=== PATIENT | male | born 1995 | race American Indian/Alaskan Native ===

== ENCOUNTER 2016-11-01 13:59 | Emergency (ER) | payer MEDICAID ==
--- NOTE | 2016-11-01 14:22 | EDPHY ---
H & P Stated Complaint: L rib pain vs skateboarding Monday Time Seen by Provider: 11/01/16 14:20 - Personal History Current Tetanus Diphtheria and Acellular Pertussis (TDAP): Yes - Medical/Surgical History Hx Asthma: No Hx Chronic Respiratory Disease: No Hx Diabetes: No Hx Cardiac Disease: No Hx Renal Disease: No Hx Cirrhosis: No Hx Alcoholism: No Hx HIV/AIDS: No Hx Splenectomy or Spleen Trauma: No Other PMH: denies - Social History Smoking Status: Current every day smoker Constitutional: Initial Vital Signs Temperature (C) 36.9 C 11/01/16 14:02 Heart Rate 85 11/01/16 14:02 Respiratory Rate 18 11/01/16 14:02 Blood Pressure 125/70 H 11/01/16 14:02 O2 Sat (%) 98 11/01/16 14:02 O2 Delivery Mode Room Air Allergies/Adverse Reactions: amoxicillin Allergy (Verified 11/01/16 14:01) Home Medications: Medication Instructions Recorded HYDROcodone/APAP 10/325 [[place] 1 - 2 each PO Q4-6PRN PRN #20 tab 11/01/16 10/325] Ibuprofen [Motrin] 800 mg PO Q8 #20 tab 11/01/16 Medical Decision Making ED Course/Re-evaluation: CHIEF COMPLAINT: Left chest pain HISTORY OF PRESENT ILLNESS: This patient is a 21 year old male who presents to the Emergency Department complaining of left-sided chest wall pain secondary to a skateboarding accident on Monday. He tells me that he attempted to do a trick on his skateboard when he landed on his left side with his arm beneath his chest. He describes his pain as localized to the left anterior chest. He describes mild associated dyspnea. He denies arm pain or swelling or any additional injuries. No pertinent medical history. REVIEW OF SYSTEMS: A 10 point review of systems was performed and is negative with the exception of the elements mentioned in the history of present illness. PHYSICAL EXAM: HR 85, BP 125/70, O2 Sat 98%, RR 18. Temp noted General Appearance: Alert, well hydrated, appropriate, and non-toxic appearing. Head: Atraumatic without scalp tenderness or obvious injury Eyes: Pupils equal, round, reactive to light and accommodation, EOMI, no trauma , no injection. Ears: Clear bilaterally, no perforation, normal landmarks Nose: Atraumatic, no rhinorrhea, clear. Throat: There is no erythema or exudates, no lesions, normal tonsils, mucus membranes moist. Neck: Supple, 2+ carotid upstroke, nontender, no lymphadenopathy. Respiratory: No retractions, no distress, no wheezes, and no accessory muscle use. Lungs are clear to auscultation bilaterally. Cardiovascular: Regular rate and rhythm, no murmurs, rubs, or gallops. Bilateral carotid, radial, dorsalis pedis, and posterior tibial pulses intact. Good capillary refill all extremities. Gastrointestinal: Abdomen is soft, nontender, non-distended, no masses, no rebound, no guarding, no peritoneal signs. Musculoskeletal: Normal active ROM of all extremities, atraumatic. Neurological: Alert, appropriate, and interactive. The patient has normal DTRs and non-focal cranial nerves, motor, sensory, and cerebellar exam. Skin: No rashes, good turgor, no nodules on palpation. Past medical history: Denies. Past surgical history: Non-contributory. Family history: Non-contributory. Social history: Smokes tobacco regularly. DIAGNOSTICS/PROCEDURES/CRITICAL CARE TIME: IMAGING: Study: X-ray of the chest Indication: Pain, trauma Results: X-ray of the chest was obtained. The results of the study are: normal. I viewed the images myself on the PACS system. Radiologist interpretation is pending at the time of this report. DIFFERENTIAL DIAGNOSIS: Differential diagnosis for the patient's chest wall pain includes but is not limited to pneumothorax, rib fracture, or rib contusion. MEDICAL DECISION MAKING: This normally healthy 21 year old presents with mild to moderate left-sided anterior chest well pain most likely secondary to a rib injury obtained when fell from his skateboard on Monday. He does report mild dyspnea but complains of no additional injuries or symptoms. His exam is benign. Will proceed with imaging of his chest to rule out lung injury. I discussed imaging results with the patient. He will be discharged home with [place] for pain and instructions to rest and ice his injury until his symptoms subside. He is agreeable to this and will be discharged home in stable condition. - Data Points Medications Given: Discontinued Medications Acetaminophen/Hydrocodone Bitart ([place] 5/325) 2 tab PO EDNOW ONE Stop: 11/01/16 14:50 Last Admin: 11/01/16 15:17 Dose: 2 tab Departure - Departure Disposition: Home, Routine, Self-Care Clinical Impression: Rib injury Condition: Good Instructions: Rib Fracture (ED) Additional Instructions: 1. Rest and ice the site of your injury until your pain resolves. 2. Alternate Tylenol and Ibuprofen every 6 hours as directed, as needed for mild pain. 3. Take [place] as prescribed, as needed for severe pain. 4. Return to the Emergency Department with worsening shortness of breath, severe pain or increased swelling, or other serious concerns. Prescriptions: Ibuprofen [Motrin] 800 mg PO Q8 #20 tab HYDROcodone/APAP 10/325 [[place] 10/325] 1 - 2 each PO Q4-6PRN PRN #20 tab PRN Reason: Pain, Moderate Report Scribed for: Greg Horner Report Scribed by: Radha Noonan Date of Report: 11/01/16 Time of Report: 14:45
[2016-11-01] MEDS ORDERED: HYDROCODONE/APAP 5/325 TAB PO ONE (14:49)
[2016-11-01 15:27] VITALS: BP 128/67; PULSE 88; RESP 16; TEMP 98.2; O2SAT 97
--- NOTE | 2016-11-01 15:41 | DX ---
Left rib series - 3 views Indication: Trauma.. Technique: PA view and 2 oblique views of the left hemithorax. Findings: The lungs are well aerated and clear. No pneumothorax, atelectasis or effusion. Heart size normal. The BB overlies the anterior left sixth rib near the costochondral junction. No underlying [place] rib fracture or bone lesion. Impression: Normal. No rib fracture or pneumothorax.
== END 2016-11-01 15:30 | disposition home or self-care (01) ==
DX: S29.9XXA Unspecified injury of thorax, initial encounter (principal); F17.200 Nicotine dependence, unspecified, uncomplicated; V00.131A Fall from skateboard, initial encounter; Y93.23 Activity, snow (alpine) (downhill) skiing, snowboarding, sledding, tobogganing and snow tubing

== ENCOUNTER 2017-07-07 13:24 | Emergency (ER) | payer MEDICAID ==
--- NOTE | 2017-07-07 14:21 | EDPHY ---
H & P Stated Complaint: R pointer finger/nail injury from skateboard yesterday Time Seen by Provider: 07/07/17 14:20 - Personal History Current Tetanus/Diphtheria Vaccine: Yes Current Tetanus Diphtheria and Acellular Pertussis (TDAP): Yes Tetanus Vaccine Date: 2013 - Medical/Surgical History Hx Asthma: No Hx Chronic Respiratory Disease: No Hx Diabetes: No Hx Cardiac Disease: No Hx Renal Disease: No Hx Cirrhosis: No Hx Alcoholism: No Hx HIV/AIDS: No Hx Splenectomy or Spleen Trauma: No Other PMH: denies - Social History Smoking Status: Current every day smoker Constitutional: Initial Vital Signs Temperature (C) 37.0 C 07/07/17 13:28 Heart Rate 85 07/07/17 13:28 Respiratory Rate 16 07/07/17 13:28 Blood Pressure 103/66 07/07/17 13:28 O2 Sat (%) 95 07/07/17 13:28 O2 Delivery Mode Room Air Allergies/Adverse Reactions: amoxicillin Allergy (Verified 11/01/16 14:01) Penicillins Allergy (Verified 07/07/17 13:28) Home Medications: Medication Instructions Recorded HYDROcodone/APAP 10/325 [[place] 1 - 2 each PO Q4-6PRN PRN #20 tab 11/01/16 10/325] Ibuprofen [Motrin] 800 mg PO Q8 #20 tab 11/01/16 Medical Decision Making - Diagnostics Imaging Results: Imaging Impressions Hand X-Ray 07/07/17 13:35 Impression: Normal. Imaging: I viewed and interpreted images myself ED Course/Re-evaluation: CHIEF COMPLAINT: Right index finger HISTORY OF PRESENT ILLNESS: The patient is a 22 y/o male complaining of a right index finger injury secondary to a fall off his skateboard last night. He has throbbing pain under his index fingernail. He denies weakness, numbness, or other injuries from the fall. He is normally healthy. REVIEW OF SYSTEMS: A 10 point review of systems was performed and is negative with the exception of the elements mentioned in the history of present illness. PHYSICAL EXAM: HR, BP, O2 Sat, RR. Temp noted General Appearance: Alert, well hydrated, appropriate, and non-toxic appearing. Head: Atraumatic without scalp tenderness or obvious injury Eyes: Pupils equal, round, reactive to light and accommodation, EOMI, no trauma , no injection. Throat: mucus membranes moist. Neck: Supple Respiratory: No retractions, no distress, no wheezes, and no accessory muscle use. Cardiovascular: Good capillary refill all extremities. Musculoskeletal: Subungual hematoma to right index finger with abrasion overlying PIP. Normal active ROM of all extremities, atraumatic. Neurological: Alert, appropriate, and interactive. Nonfocal neuro exam. Skin: No rashes, good turgor, no nodules on palpation. Past medical history: Denies Past surgical history: Denies Family history: Noncontributory Social history: Employed at [employer]. Lives in [place]. DIAGNOSTICS/PROCEDURES/CRITICAL CARE TIME: Right finger x-ray: no fracture. Subungual cautery performed successfully by myself. Patient tolerated the procedure well. DIFFERENTIAL DIAGNOSIS: The differential diagnosis for the patient's symptoms included but was not limited to subungual hematoma, finger abrasion, fracture, sprain, contusion. MEDICAL DECISION MAKING: This is a healthy 22 y/o male who presents with a right index finger subungual hematoma and abrasion over his PIP joint after falling off his skateboard last night. He is neurovascularly intact. His subungual hematoma was treated successfully with cautery. He had significant relief following this procedure. His x-ray is negative for fracture. He will be discharged with standard wound care and return precautions. He is comfortable with this plan. Departure - Departure Disposition: Home, Routine, Self-Care Clinical Impression: Subungual hematoma Finger abrasion Qualifiers: Encounter type: initial encounter Qualified Code(s): S60.419A - Abrasion of unspecified finger, initial encounter Condition: Good Instructions: Subungual Hematoma (ED) Additional Instructions: Keep site clean and dry. Cover wounds while at work until completely healed. Follow up with your PCP or return to the ED for any signs of infection. Referrals: [facility],. [Clinic] - As per Instructions Stand Alone Forms: Work Excuse Report Scribed for: Greg Horner Report Scribed by: Lorene Clements Date of Report: 07/07/17 Time of Report: 14:27
[2017-07-07 14:47] VITALS: BP 99/60; PULSE 56; RESP 18; TEMP 98.2; O2SAT 96
== END 2017-07-07 14:50 | disposition home or self-care (01) ==
PROC: 0H9QXZZ Drainage of Finger Nail, External Approach (ICD-10-PCS; principal; 2017-07-07)
DX: S60.121A Contusion of right index finger with damage to nail, initial encounter (principal); S60.410A Abrasion of right index finger, initial encounter; F17.200 Nicotine dependence, unspecified, uncomplicated; V00.131A Fall from skateboard, initial encounter; Y93.51 Activity, roller skating (inline) and skateboarding

== ENCOUNTER 2018-04-01 04:56 | Emergency (ER) | payer MEDICAID ==
[2018-04-01 05:03] VITALS: BP 131/87
--- NOTE | 2018-04-01 05:04 | EDPHY ---
H & P Time Seen by Provider: 04/01/18 05:00 HPI/ROS: HPI CHIEF COMPLAINT: Alcohol Intoxication, left knee contusion, left knee small laceration HISTORY OF PRESENT ILLNESS: 22-year-old male, presents emergency room by EMS for acute alcohol intoxication. Police and EMS make contact with him as he was found highly intoxicated passed out on a balcony. Please had trouble waking him up. EMS arrived to find him alert, oriented, however he had a small laceration left anterior knee. Minimal bleeding. It is unclear exactly what happened or how he got this laceration the patient does not remember. He is intoxicated with alcohol. No other areas of injury on exam. Patient was cooperative with EMS and police. Does admit to a large amount of alcohol this evening. Patient does not remember how he got a small left knee laceration. Patient reports his tetanus shot is up-to-date. Past Medical History: Denies medical history Past Surgical History: Denies surgical history Social History: Large amount of alcohol this evening otherwise denies illicit drugs. Family History: Noncontributory ROS REVIEW OF SYSTEMS: Limited review systems due to patient's mental state of alcohol intoxication Exam Constitutional Intoxicated, triage nursing summary reviewed, vital signs reviewed, Sleepy, smells of alcohol Eyes normal conjunctivae and sclera, horizontal beating nystagmus consistent acute alcohol intoxication, otherwise pupils equal and react to light HENT normal inspection, atraumatic, moist mucus membranes, no epistaxis, neck supple/ no meningismus, no raccoon eyes. Respiratory clear to auscultation bilaterally, normal breath sounds, no respiratory distress, no wheezing. Cardiovascular rate normal, regular rhythm, no murmur, no edema, distal pulses normal. Gastrointestinal soft, non-tender, no rebound, no guarding, normal bowel sounds, no distension, no pulsatile mass. Genitourinary no CVA tenderness. Musculoskeletal no midline vertebral tenderness, full range of motion, no calf swelling, no tenderness of extremities, no meningismus, good pulses, neurovascularly intact. Skin over the anterior left lateral aspect of the knee there is a small less than 1 cm laceration. Otherwise his left lower extremity is neurovascular intact, full range of motion of the left knee with normal flexion extension, no evidence of foreign body seen in the laceration. Neurologic sleepy, intoxicated with alcohol,, alert and oriented x 3, AAOx3, moves all 4 extremities equally, motor intact, sensory intact, CN II-XII intact , , normal vision, normal speech. Psychiatric normal mood/affect. Heme/Lymph/Immune no lymphadenopathy. Differential Diagnosis: Includes but is not limited to in a particular order acute alcohol intoxication, alcohol abuse, dehydration, electrolyte abnormality , nausea vomiting from acute alcohol intoxication, knee contusion, needs sprain , fracture, laceration, soft tissue Medical Decision Making: Plan for this patient x-ray left knee for evaluation of bony abnormality including fracture, and then will copiously irrigating clean his wound out and then repair his laceration. Patient will need time for sobering. Once sober enough he can be disposition to the [facility] as he is on an [facility] hold. Re-evaluation: Laceration Repair Procedure: Verbal Consent was obtained, Under sterile conditions, The patient had lidocaine with epinephrine used approximately 3ccs to local anesthetize the Left Knee <2CM Laceration. The wound was copiously irrigated with sterile fluid, the wound was explored for foreign bodies there were none visualized, the wound was explored with a sterile glove to the base. There are no deep structures involved, including no arterial injury. TWO 4.O PROLENE interrupted Sutures were placed in this patient's laceration. He had good close approximation of the wound edges. He Tolerated this well. 0512: Patient ambulated well throughout the emergency room then difficulty. Steady gait. Clinically sober to go to the [facility]. Laceration repair. It was copiously irrigated and explored no foreign body seen. X-ray reviewed. Patient understands have sutures removed in 10-12 days this is placed on his discharge paperwork. Return precautions discussed some he understands watch for infection. Return if any worsening symptoms questions or concerns including preceding pain , swelling, redness, drainage. X-ray left knee reviewed no evidence of foreign body on the x-ray nor is there evidence of fracture. Image interpreted by myself. Source: Patient, Police, EMS - Personal History Tetanus Vaccine Date: 2013 - Medical/Surgical History Hx Asthma: No Hx Chronic Respiratory Disease: No Hx Diabetes: No Hx Cardiac Disease: No Hx Renal Disease: No Hx Cirrhosis: No Hx Alcoholism: No Hx HIV/AIDS: No Hx Splenectomy or Spleen Trauma: No Other PMH: denies - Social History Smoking Status: Current every day smoker Constitutional: Initial Vital Signs Temperature (C) 36.6 C 04/01/18 05:02 Heart Rate 88 04/01/18 05:02 Respiratory Rate 16 04/01/18 05:02 Blood Pressure 131/87 H 04/01/18 05:02 O2 Sat (%) 96 04/01/18 05:02 O2 Delivery Mode Room Air Allergies/Adverse Reactions: amoxicillin Allergy (Verified 04/01/18 05:03) Penicillins Allergy (Verified 04/01/18 05:03) Home Medications: Medication Instructions Recorded NK [No Known Home Meds] 04/01/18 Departure - Departure Disposition: Home, Routine, Self-Care Clinical Impression: Alcoholic intoxication Qualifiers: Complication of substance-induced condition: uncomplicated Qualified Code(s): F10.920 - Alcohol use, unspecified with intoxication, uncomplicated Knee laceration Qualifiers: Encounter type: initial encounter Laterality: left Qualified Code(s): S81.012A - Laceration without foreign body, left knee, initial encounter Condition: Good Instructions: Care For Your Stitches (ED), Laceration (ED), Alcohol Intoxication (ED), Abuse of Alcohol (ED) Additional Instructions: 1. Your sutures will need to be removed in 10-12 days. 2. Watch for signs of infection this includes drainage, swelling, redness, increasing pain. 3. Keep your wound clean, dry and protected. Referrals: NONE *PRIMARY CARE P,. [Primary Care Provider] - As per Instructions
== END 2018-04-01 05:20 | disposition home or self-care (01) ==
LOC: EDUNIT#
PROC: 0HQLXZZ Repair Left Lower Leg Skin, External Approach (ICD-10-PCS; principal; 2018-04-01)
DX: S81.012A Laceration without foreign body, left knee, initial encounter (principal); F10.920 Alcohol use, unspecified with intoxication, uncomplicated; F17.200 Nicotine dependence, unspecified, uncomplicated; X58.XXXA Exposure to other specified factors, initial encounter; Y92.89 Other specified places as the place of occurrence of the external cause; Y99.8 Other external cause status; Y93.89 Activity, other specified

== ENCOUNTER 2018-06-27 16:41 | Emergency (ER) | payer SELFPAY ==
[2018-06-27 16:46] VITALS: BP 120/78
--- NOTE | 2018-06-27 17:30 | EDPHY ---
H & P Stated Complaint: l lower molar shanell pain/states has hx cracked tooth Time Seen by Provider: 06/27/18 17:22 HPI/ROS: CHIEF COMPLAINT: Dental pain HISTORY OF PRESENT ILLNESS: The patient presents to the ED with complaints of dental pain. He has a chronic dental aileen involving his number 18 tooth. The patient has been unable to schedule a appointment with a dentist secondary to his insurance status. The patient denies any fever or trismus. The patient denies any headache or neck stiffness. He has no additional acute complaints. REVIEW OF SYSTEMS: A comprehensive 10 point review of systems is otherwise negative aside from elements mentioned in the history of present illness. Source: Patient Exam Limitations: No limitations - Personal History Current Tetanus Diphtheria and Acellular Pertussis (TDAP): Yes Tetanus Vaccine Date: 2013 - Medical/Surgical History Hx Asthma: No Hx Chronic Respiratory Disease: No Hx Diabetes: No Hx Cardiac Disease: No Hx Renal Disease: No Hx Cirrhosis: No Hx Alcoholism: No Hx HIV/AIDS: No Hx Splenectomy or Spleen Trauma: No Other PMH: denies - Social History Smoking Status: Current every day smoker - Physical Exam Exam: General Appearance: Alert, no distress Eyes: Pupils equal and round no pallor or injection ENT, Mouth: Poor dentition, dental aileen noted at the number 18 tooth with tap tenderness. No mandibular swelling. No peritonsillar abscess or mass noted Respiratory: There are no retractions, lungs are clear to auscultation Cardiovascular: Regular rate and rhythm Gastrointestinal: Abdomen is soft and nontender, no masses, bowel sounds normal Neurological: A&O, normal motor function, normal sensory exam, normal cranial nerves Skin: Warm and dry, no rashes Musculoskeletal: Neck is supple nontender Extremities: symmetrical, full range of motion Constitutional: Initial Vital Signs Temperature (C) 36.6 C 06/27/18 16:44 Heart Rate 60 06/27/18 16:44 Respiratory Rate 16 06/27/18 16:44 Blood Pressure 120/78 06/27/18 16:44 O2 Sat (%) 96 06/27/18 16:44 O2 Delivery Mode Room Air Allergies/Adverse Reactions: amoxicillin Allergy (Verified 06/27/18 16:43) Penicillins Allergy (Verified 06/27/18 16:43) Home Medications: Medication Instructions Recorded Clindamycin 150 mg PO Q8 #21 cap 06/27/18 Hydrocodone/APAP 5/325 [[place] 1 - 2 each PO Q6 PRN #20 tab 06/27/18 [id number]] Medical Decision Making ED Course/Re-evaluation: The patient presents the ED with likely apical abscess. Given his penicillin allergy will be discharged home with a prescription for clindamycin. He is also given the contact number for [facility] informed that they will take him without insurance. Patient is also given a prescription for pain medications. Differential Diagnosis: Differential diagnosis considered includes osteomyelitis, submandibular abscess , apical abscess, dental fracture Departure - Departure Disposition: Home, Routine, Self-Care Clinical Impression: Pain, dental Instructions: Toothache (ED) Additional Instructions: 1. Take antibiotics as directed. 2. Take Ibuprofen or Motrin 600 mg by mouth three times a day. 3. [place] as needed for severe pain 4. Please contact [facility] tomorrow morning. They will take you without any insurance or ability to pay. Referrals: [facility] [Outside] - As per Instructions
== END 2018-06-27 17:43 | disposition home or self-care (01) ==
DX: K08.89 Other specified disorders of teeth and supporting structures (principal); Z88.0 Allergy status to penicillin

== ENCOUNTER 2018-12-14 14:10 | Emergency (ER) | payer OTHER ==
[2018-12-14 14:35] VITALS: BP 114/57
--- NOTE | 2018-12-14 14:58 | EDPHY ---
H & P Stated Complaint: L lower tooth problem x4mos, swelling this AM, appts get cancelled. Time Seen by Provider: 12/14/18 14:51 - Personal History Current Tetanus/Diphtheria Vaccine: Yes Tetanus Vaccine Date: 2013 - Medical/Surgical History Hx Asthma: No Hx Chronic Respiratory Disease: No Hx Diabetes: No Hx Cardiac Disease: No Hx Renal Disease: No Hx Cirrhosis: No Hx Alcoholism: No Hx HIV/AIDS: No Hx Splenectomy or Spleen Trauma: No Other PMH: denies - Social History Smoking Status: Current every day smoker Constitutional: Initial Vital Signs Temperature (C) 37.0 C 12/14/18 14:32 Heart Rate 60 12/14/18 14:32 Respiratory Rate 18 12/14/18 14:32 Blood Pressure 114/57 L 12/14/18 14:32 O2 Sat (%) 95 12/14/18 14:32 O2 Delivery Mode Room Air Allergies/Adverse Reactions: amoxicillin Allergy (Verified 12/14/18 14:32) Penicillins Allergy (Verified 12/14/18 14:32) Home Medications: Medication Instructions Recorded Clindamycin 150 mg PO Q8 #21 cap 06/27/18 Hydrocodone/APAP 5/325 [[place] 1 - 2 each PO Q6 PRN #20 tab 06/27/18 5/325] Cephalexin [Keflex (RX)] 500 mg PO TID #10 cap 12/14/18 Hydrocodone/APAP 5/325 [[place] 1 - 2 each PO Q4-6PRN PRN #10 tab 12/14/18 5/325] Ibuprofen [Motrin] 800 mg PO Q8 #20 tab 12/14/18 Medical Decision Making ED Course/Re-evaluation: CHIEF COMPLAINT: Toothache HISTORY OF PRESENT ILLNESS: The patient is a 23 y/o male complaining of left lower tooth pain for 4 months. He has an appointment with a dentist next week, but the pain is "too much" currently. He was advised to present to the emergency department to control the pain. No fever, headache, body aches, lightheadedness, chest pain, heart palpitations, shortness of breath, cough, abdominal pain, urinary or bowel complaints, numbness, paresthesias. REVIEW OF SYSTEMS: A 10 point review of systems was performed and is negative with the exception of the elements mentioned in the history of present illness. PHYSICAL EXAM: HR, BP, O2 Sat, RR. Temp noted General Appearance: Alert, well hydrated, appropriate, and non-toxic appearing. Head: Atraumatic without scalp tenderness or obvious injury Eyes: Pupils equal, round, reactive to light and accommodation, EOMI, no trauma , no injection. Ears: Clear bilaterally, no perforation, normal landmarks Nose: Atraumatic, no rhinorrhea, clear. Throat: Left second to last lower molar has signs of infection. There is no erythema or exudates, no lesions, normal tonsils, mucus membranes moist. Neck: Supple, 2+ carotid upstroke, nontender, no lymphadenopathy. Respiratory: No retractions, no distress, no wheezes, and no accessory muscle use. Lungs are clear to auscultation bilaterally. Cardiovascular: Regular rate and rhythm, no murmurs, rubs, or gallops. Bilateral carotid, radial, dorsalis pedis, and posterior tibial pulses intact. Good capillary refill all extremities. Gastrointestinal: Abdomen is soft, nontender, non-distended, no masses, no rebound, no guarding, no peritoneal signs. Musculoskeletal: Normal active ROM of all extremities, atraumatic. Neurological: Alert, appropriate, and interactive. The patient has normal DTRs and non-focal cranial nerves, motor, sensory, and cerebellar exam. Skin: No rashes, good turgor, no nodules on palpation. Past medical history: Denies Past surgical history: Denies Family history: Denies Social history: Employed, single, lives in [place] DIAGNOSTICS/PROCEDURES/CRITICAL CARE TIME: Not indicated. DIFFERENTIAL DIAGNOSIS: The differential diagnosis for the patient's toothache included but was not limited to dental infection, dental abscess, dental trauma, viral syndrome, sepsis. MEDICAL DECISION MAKING: The patient is a 23 y/o male presenting with worsening left lower tooth pain for 4 months. On exam he has left second to last lower molar has signs of infection. Labs and imaging are not indicated. I will prescribe him [place] and Motrin for pain control and Keflex for the infection. I have also advised him to follow up with a dentist. Return precautions provided; patient is comfortable with this plan. Departure - Departure Disposition: Home, Routine, Self-Care Clinical Impression: Pain, dental Condition: Good Instructions: Toothache (ED) Additional Instructions: 1. Take Keflex as prescribed. 2. Take Motrin and [place] as prescribed for pain. 3. Follow-up with your dentist within one week. 4. Return to the ED for fever, difficulty swallowing, increase in swelling or other concerns. Referrals: [facility] [Outside] - As per Instructions Prescriptions: Cephalexin [Keflex (RX)] 500 mg PO TID #10 cap Hydrocodone/APAP 5/325 [[place] 5/325] 1 - 2 each PO Q4-6PRN PRN #10 tab PRN Reason: Pain, Moderate Ibuprofen [Motrin] 800 mg PO Q8 #20 tab Report Scribed for: Greg Horner Report Scribed by: Mattie De La Paz Date of Report: 12/14/18 Time of Report: 14:59
== END 2018-12-14 15:07 | disposition home or self-care (01) ==
DX: K08.89 Other specified disorders of teeth and supporting structures (principal); F17.200 Nicotine dependence, unspecified, uncomplicated